=== PATIENT | female | born 1950 | race Caucasian/White ===

== ENCOUNTER 2018-01-25 12:18 | Emergency (ER) | payer MEDICARE, OTHER ==
[~2018-01-25] VITALS: Ht 170.2 cm; Wt 100.0 kg
[2018-01-25] MEDS ORDERED: LOSARTAN POTASS50 M1 PO (12:27)
[2018-01-25] MEDS ORDERED: METFORMIN HYD1000 MG PO (12:27)
[2018-01-25] MEDS ORDERED: TOPROL XL 50MG50 MG PO (12:27)
[2018-01-25] MEDS ORDERED: OMEPRAZOLE D/R20 MG PO (12:27)
[2018-01-25] MEDS ORDERED: SIMVASTATIN40 M1 PO (12:27)
[2018-01-25] MEDS ORDERED: GLIPIZIDE ER5 MG PO (12:27)
[2018-01-25] MEDS ORDERED: ASPIR LOW81 MG PO (12:28)
[2018-01-25] MEDS ORDERED: LORATADINE10 M1 PO (12:28)
[2018-01-25 12:53] LABS: EOS # 0.1 (0.04-0.40); EOS % 2.2 % (1.0-5.0); HEMATOCRIT 37.8 % (37.0-47.0); HEMOGLOBIN 12.3 g/dL (12.5-16.0); LYMPH# 1.2 (1.50-4.00); MEAN CELL VOLUME 92 fl (78-100); MEAN CORPUSCULAR HEMOGLOBIN 30 pg (27-31); MEAN CORPUSCULAR HGB CONC 33 g/dL (33-37); MEAN PLATELET VOLUME 8.5 fl (7.4-10.4); MONO # 0.7 (0.20-0.80); NEU # 3.8 (1.40-6.50); PLATELET COUNT 257 K/mm3 (130-400); RED BLOOD COUNT 4.11 M/mm3 (4.10-5.30); RED CELL DISTRIBUTION WIDTH 12.9 % (11.5-14.5); WHITE BLOOD COUNT 5.8 K/mm3 (4.8-10.8)
[2018-01-25 13:04] LABS: ALBUMIN 3.6 g/dL (3.5-5.0); BUN/CREATININE RATIO 22.1 (6.0-26.0); CALCIUM 9.7 mg/dL (8.4-10.2); POTASSIUM 4.4 mmol/L (3.6-5.0); TOTAL BILIRUBIN 0.2 mg/dL (0.2-1.3); TOTAL PROTEIN 6.4 g/dL (6.3-8.2)
[2018-01-25 13:11] LABS: URINE APPEARANCE CLEAR; URINE BILIRUBIN NEGATIVE (NEGATIVE); URINE BLOOD TRACE (NEGATIVE); URINE COLOR YELLOW; URINE GLUCOSE NEGATIVE (NEGATIVE); URINE KETONE NEGATIVE (NEGATIVE); URINE LEUKOCYTE ESTERASE NEGATIVE (NEGATIVE); URINE NITRATE NEGATIVE (NEGATIVE); URINE PROTEIN(semi-quant) TRACE mg/dL (NEGATIVE); URINE UROBILINOGEN NORMAL (NORMAL)
[2018-01-25 13:12] LABS: URINE MUCUS PRESENT (NOT PRESENT)
[2018-01-25 15:09] VITALS: BP 150/78
== END 2018-01-25 15:03 | disposition home or self-care (01) ==
LOC: ED 12:18
PROVIDERS: Family Medicine
DX: N23 Unspecified renal colic (principal); E11.9 Type 2 diabetes mellitus without complications; I10 Essential (primary) hypertension; E78.5 Hyperlipidemia, unspecified; K21.9 Gastro-esophageal reflux disease without esophagitis; Z87.442 Personal history of urinary calculi; Z79.84 Long term (current) use of oral hypoglycemic drugs; Z79.82 Long term (current) use of aspirin
CPT/HCPCS: J1885

== ENCOUNTER → 2018-11-18 | Outpatient (CLI) | payer MEDICARE, OTHER ==
[~2018-11-18] MED LIST: ASPIR LOW81 MG PO; GLIPIZIDE ER5 MG PO; LORATADINE10 M1 PO; LOSARTAN POTASS50 M1 PO; METFORMIN HYD1000 MG PO; OMEPRAZOLE D/R20 MG PO; SIMVASTATIN40 M1 PO; TOPROL XL 50MG50 MG PO
== END ==
LOC: RAD 09:36
DX: M19.012 Primary osteoarthritis, left shoulder (principal)

== ENCOUNTER 2018-12-18 14:45 | Outpatient (RCR) | payer MEDICARE, OTHER ==
[2019-02-22] MEDS ORDERED: ZITHROMAX 250M250 MG PO (17:21)
== END 2018-12-18 15:30 | disposition home or self-care (01) ==
LOC: PT 14:45
DX: M75.22 Bicipital tendinitis, left shoulder (principal)
CPT/HCPCS: G8985-GP

== ENCOUNTER 2019-02-21 05:17 | Emergency (ER) | payer MEDICARE, OTHER ==
[~2019-02-21] VITALS: Ht 170.2 cm; Wt 101.8 kg
[2019-02-21] MEDS ORDERED: ATENOLOL25 MG PO (05:39)
[2019-02-21] MEDS ORDERED: ESCITALOPRAM10 MG PO (05:39)
[2019-02-21] MEDS ORDERED: ASPIRIN E.C. 8181 MG (06:22)
[2019-02-21] MEDS ORDERED: CLOBETASOL PROP15 GM TP (06:28)
[2019-02-21] MEDS ORDERED: PRILOSEC OTC20 MG PO (06:28)
[2019-02-21] MEDS ORDERED: ZYRTEC ALLERGY10 MG PO (06:28)
[2019-02-21 06:51] LABS: ALBUMIN 3.9 g/dL (3.5-5.0); CALCIUM 9.1 mg/dL (8.4-10.2); TOTAL BILIRUBIN 0.6 mg/dL (0.2-1.3)
[2019-02-21 07:38] LABS: HEMATOCRIT 40.9 % (37.0-47.0); HEMOGLOBIN 13.1 g/dL (12.5-16.0); MEAN CELL VOLUME 90 fl (78-100); MEAN CORPUSCULAR HEMOGLOBIN 29 pg (27-31); MEAN CORPUSCULAR HGB CONC 32 g/dL (33-37); MEAN PLATELET VOLUME 8.8 fl (7.4-10.4); PLATELET COUNT 264 K/mm3 (130-400); RED BLOOD COUNT 4.55 M/mm3 (4.10-5.30); RED CELL DISTRIBUTION WIDTH 13.1 % (11.5-14.5); WHITE BLOOD COUNT 6.5 K/mm3 (4.8-10.8)
[2019-02-21 08:24] LABS: BAND 41 % (0-10); LYMPHOCYTE 6 % (20-51); MONOCYTE 9 % (3-10); NEUTROPHILS 44 % (42-75)
[2019-02-21 08:50] LABS: URINE APPEARANCE HAZY; URINE BILIRUBIN NEGATIVE (NEGATIVE); URINE BLOOD TRACE (NEGATIVE); URINE COLOR AMBER; URINE GLUCOSE NEGATIVE (NEGATIVE); URINE KETONE 3+ (NEGATIVE); URINE LEUKOCYTE ESTERASE NEGATIVE (NEGATIVE); URINE NITRATE NEGATIVE (NEGATIVE); URINE PROTEIN(semi-quant) 1+ mg/dL (NEGATIVE); URINE UROBILINOGEN NORMAL (NORMAL)
[2019-02-21 08:51] LABS: URINE MUCUS PRESENT (NOT PRESENT)
[2019-02-21] MEDS ORDERED: ZOFRAN ODT4 MG PO (10:57)
[2019-02-21 11:13] VITALS: BP 144/64
[2019-02-22] MEDS ORDERED: ZITHROMAX 250M250 MG PO (17:21)
== END 2019-02-21 11:06 | disposition home or self-care (01) ==
LOC: ED 05:17
PROVIDERS: Family Medicine
DX: R11.2 Nausea with vomiting, unspecified (principal); R19.7 Diarrhea, unspecified; E11.9 Type 2 diabetes mellitus without complications; I10 Essential (primary) hypertension; F32.9 Major depressive disorder, single episode, unspecified; Z91.19 Patient's noncompliance with other medical treatment and regimen; Z79.84 Long term (current) use of oral hypoglycemic drugs; Z79.82 Long term (current) use of aspirin; Z79.51 Long term (current) use of inhaled steroids; Z90.710 Acquired absence of both cervix and uterus
CPT/HCPCS: J2405; J7030